=== PATIENT | female | born 1955 | race Asian ===

== ENCOUNTER → 2017-09-13 | Outpatient (CLI) | payer BC, MEDICARE | LOC: CFH 09:12 | PROVIDERS: ATTEND Clinical Nurse Specialist | DX: K21.9 Gastro-esophageal reflux disease without esophagitis (principal) | CPT/HCPCS: 74241 ==

== ENCOUNTER → 2018-07-18 | Outpatient (CLI) | payer BC, MEDICARE | END | disposition home or self-care (01) | LOC: CFH 10:11 | PROVIDERS: ATTEND Clinical Nurse Specialist | DX: K95.09 Other complications of gastric band procedure (principal) | CPT/HCPCS: 74241 ==

== ENCOUNTER → 2018-08-24 | Outpatient (CLI) | payer BC, MEDICARE | END | disposition home or self-care (01) | LOC: CFH 12:40 | PROVIDERS: ATTEND Internal Medicine | DX: Z12.31 Encounter for screening mammogram for malignant neoplasm of breast (principal); E11.9 Type 2 diabetes mellitus without complications | CPT/HCPCS: 77063; 77067 ==

== ENCOUNTER → 2020-08-28 | Outpatient (CLI) | payer OTHER, MEDICARE | END | disposition home or self-care (01) | LOC: CFH 09:54 | PROVIDERS: ATTEND Internal Medicine | DX: M19.011 Primary osteoarthritis, right shoulder (principal) ==

== ENCOUNTER 2021-02-19 14:22 | Outpatient (CLI) | payer MEDICARE | END 2021-02-19 23:59 | disposition home or self-care (01) | LOC: CFH 14:22 | PROVIDERS: ATTEND Internal Medicine | DX: Z12.31 Encounter for screening mammogram for malignant neoplasm of breast (principal) | CPT/HCPCS: 77063; 77067 ==